=== PATIENT | male | born 1975 | race Caucasian/White ===

== ENCOUNTER 2024-04-02 12:25 | Emergency (ER) | payer OTHER, SELFPAY ==
[2024-04-02] VITALS (10 sets, daily range): BP systolic 181–210; BP diastolic 93–121; PULSE 71–100; RESP 18; TEMP 36.4–37; O2SAT 98–100; BMI 23.9
--- NOTE | ~2024-04-02 | XR_ITS ---
EXAMINATION: XR CHEST CLINICAL INFORMATION: Chest pain COMPARISON: None available. TECHNIQUE: 2 views of the chest were obtained. FINDINGS: No significant abnormality is noted involving the heart, lungs, mediastinum, bony thorax or soft tissues. XR/XR chest 2V IMPRESSION: Unremarkable examination. Electronically signed by: Shiva Alvarado MD 04/02/2024 10:35 PM EDT
--- NOTE | 2024-04-02 12:42 | ECG_ITS ---
Test Reason : CHEST PAIN Blood Pressure : / mmHG Vent. Rate : 089 BPM Atrial Rate : 089 BPM P-R Int : 120 ms QRS Dur : 104 ms QT Int : 358 ms P-R-T Axes : 052 049 039 degrees QTc Int : 435 ms Normal sinus rhythm Moderate voltage criteria for LVH, may be normal variant ( Sokolow-Ball , [place] product ) Borderline ECG No previous ECGs available Referred By: Generic ED Physician Electronically Signed By:DON JANE
--- NOTE | 2024-04-02 12:44 | ED_ITS ---
HPI - Chest Pain General Chief Complaint: Chest Pain Stated Complaint: hypertension issue Time Seen by Provider: 04/02/24 20:15 Source: patient Limitations: no limitations History of Present Illness ED Provider: Paty Marks PA-C HPI narrative: 48-year-old male with a history of anxiety, hypertension with nonadherence with his medications for years, white coat syndrome, presents with chest pain. Patient states he is traveling through the area, he [place] [address] when he felt ?a twinge in his chest. His symptoms were brief. He began to panic, he pulled off to the side of the road, he called a friend to bring him to the emergency department. Denies shortness of breath, diaphoresis, visual changes, headache, dizziness, nausea, vomiting. Patient states he has been off meds for quite some time, he used to take amlodipine 5 mg and HCTZ 25 mg. Patient does have a primary care provider he can follow up with. Related Data Previous Rx's ?Medication ?Instructions ?Recorded amlodipine 10 mg tablet 10 mg PO DAILY #30 tabs 04/02/24 hydrochlorothiazide 25 mg tablet 25 mg PO DAILY #30 tabs 04/02/24 hydroxyzine HCl 50 mg tablet 50 mg PO QID PRN anxiety #20 tabs 04/02/24 Allergies Allergy/AdvReac Type Severity Reaction Status Date / Time No Known Allergies Allergy Verified 04/02/24 12:36 Review of Systems 2 Review of Systems: Yes all other systems are reviewed and are negative Constitutional: Constitutional: Denies fever(s) and Denies headache(s) Eyes: Eyes: Denies change in vision ENT: Denies headache(s) Cardiovascular: Cardiovascular: Reports chest pain, Denies radiating jaw, neck or arm pain and Denies dyspnea Respiratory: Respiratory: Denies dyspnea Gastrointestinal: Gastrointestinal: Denies vomiting Neurologic: Denies headache(s) [facility] Past Medical History Attestation statement: The following information was validated with the patient. Social History Social History Advance Directives: No Advance Directives Information Provided: No Do you have a plan to hurt others: No Plan Physical Exam 2 Vital Signs: Vital Signs: Last Vital Signs Temp 97.8 F 04/02/24 21:48 Pulse 75 04/02/24 22:00 Resp 18 04/02/24 22:00 BP 181/99 H 04/02/24 22:04 Pulse Ox 98 04/02/24 21:49 O2 Del Method Room Air 04/02/24 21:49 BMI result Body Mass Index 23.9 Const: Other: Alert, well in appearance Orientation/consciousness: patient oriented x3 Resp: Effort & Inspection: normal respiratory effort Cardio: Other: Normal peripheral perfusion Skin: Other: Warm dry no rash Neuro: General: patient oriented x3, gait normal, no focal motor deficits and CN's II-XI intact bilaterally Psych: Other: Cooperative, anxious Course Course Course Narrative: This is an RME performed by Mary Fonseca, TRAINING PROGRAM DEVELOPER: Additional HPI, ROS, PE not included below will be deferred to primary provider. Patient is a 48-year-old male who presents emergency department for evaluation of left anterior chest pain, hypertension. Has not been taking antihypertensive medications. Plan: Well-appearing, nontoxic, notably hypertensive to 209/121 Medications Administered Discontinued Medications Generic Name Dose Route Start Last Admin Trade Name Freq PRN Reason Stop Dose Admin Amlodipine Besylate 5 mg 04/02/24 20:55 04/02/24 21:08 Amlodipine Besylate 5 Mg Tablet PO 04/02/24 20:56 5 mg ONCE ONE Administration Protocol Amlodipine Besylate 5 mg 04/02/24 21:48 04/02/24 22:04 Amlodipine Besylate 5 Mg Tablet PO 04/02/24 21:49 5 mg ONCE ONE Administration Protocol Hydrochlorothiazide 25 mg 04/02/24 20:55 04/02/24 21:07 Hydrochlorothiazide 25 Mg Tablet PO 04/02/24 20:56 25 mg ONCE ONE Administration Protocol Hydroxyzine HCl 50 mg 04/02/24 20:55 04/02/24 21:08 Hydroxyzine Hcl 50 Mg Tablet PO 04/02/24 20:56 50 mg ONCE ONE Administration Medical Decision Making Medical Decision Making [facility] Narrative: 48-year-old male with a history of anxiety, hypertension with nonadherence with his medications for years, white coat syndrome, presents with chest pain. Patient states he is traveling through the area, he was driving on when he felt ?a twinge in his chest. His symptoms were brief. He began to panic, he pulled off to the side of the road, he called a friend to bring him to the emergency department. Denies shortness of breath, diaphoresis, visual changes, headache, dizziness, nausea, vomiting. Patient states he has been off meds for quite some time, he used to take amlodipine 5 mg and HCTZ 25 mg. Patient does have a primary care provider he can follow up with. Problem: Poorly managed hypertension History: Per patient I have considered the following differential diagnoses: ACS, hypertensive urgency, hypertensive emergency, anxiety, panic attack Plan: The patient is indeed hypertensive, he has been off his medications, this is expected. His assessment began out in triage, screening labs including a cardiac enzyme and EKG were obtained. We will obtain a delta troponin, and a chest x-ray. I am giving the patient has prescribed medications. I am also giving him a dose of hydroxyzine. I discussed with him the need to initiate therapy, he agrees. He has been told in the past that he would benefit from counseling. This is not hypertensive emergency, he is not altered, he has no evidence of end-organ damage. Hard to say whether this is hypertensive urgency, he has no blood pressure, that has not been managed, he also has white coat syndrome and anxiety which exacerbate his current elevated pressures. To note, they are responding to medication. I have independently reviewed the following tests: Labs: No leukocytosis, not anemic, no electrolyte abnormality, creatinine .79, troponin x2 negative Chest x-ray: No enlarged cardiac silhouette, no pleural effusion, no pulmonary Edema, no pneumonia EKG: Normal sinus rhythm, rate, 89 , no ischemic changes no ectopy, moderate voltage criteria for LVH Lab Data 04/02/24 12:53 04/02/24 12:53 Labs: Lab Results 04/02/24 04/02/24 Range/Units 12:53 20:58 WBC 6.2 (4.8-10.8) X10*3/uL RBC 5.62 (4.60-5.80) X10*6/uL Hgb 17.3 (14.0-18.0) g/dl Hct 48.3 (42.0-52.0) % MCV 85.9 (80.0-98.0) fL MCH 30.8 (27.0-33.0) pg MCHC 35.8 (31.0-36.0) g/dl RDW 11.9 (11.0-16.0) % Plt Count 199 (160-400) X10*3/uL MPV 9.9 (9.4-12.4) fL Immature Gran % (Auto) 0.6 H (0.0-0.4) % Neut % (Auto) 63.1 (45-73) % Lymph % (Auto) 23.0 (20-40) % [place] % (Auto) 10.3 (2-11) % Eos % (Auto) 1.4 (0-4) % Baso % (Auto) 1.6 (0-2) % Lymph # (Auto) 1.4 (1.2-4.9) X10*3/uL [place] # (Auto) 0.6 (0.1-1.2) X10*3/uL Eos # (Auto) 0.1 (0.0-0.4) X10*3/uL Baso # (Auto) 0.1 (0.0-0.2) X10*3/uL Abs Immat Gran (auto) 0.04 H (0.00-0.03) X10*3/uL Absolute Neuts (auto) 3.9 (2.0-8.3) x10*3/uL Absolute Nucleated RBC 0.000 (0.0-0.012) X10*3/uL Nucleated RBC % (auto) 0.0 (0.0-0.2) /100WBC Smear Tech's Comments VERIFIED Sodium 139 (135-145) mmol/L Potassium 4.4 (3.3-5.1) mmol/L Chloride 106 (96-108) mmol/L Carbon Dioxide 23 (22-29) mmol/L Anion Gap 14 (12-20) BUN 12 (9-16) mg/dL Creatinine 0.79 (0.5-1.4) mg/dL Estim Creat Clear Calc 97.8 Estimated GFR > 60 Random Glucose 104 (60-115) mg/dL Calcium 9.3 (8.4-10.2) mg/dL Magnesium 2.2 (1.6-2.6) mg/dL Total Bilirubin 0.6 (0.0-1.0) mg/dL AST 36 (5-37) U/L ALT 43 H (0-40) U/L Alkaline Phosphatase 51 (39-117) U/L Troponin I High Sens < 2.7 < 2.7 (<3.5-35.0) ng/L Total Protein 7.2 (6.5-8.0) g/dL Albumin 4.4 (3.5-5.0) g/dL Discharge Plan Discharge Clinical Impression: Hypertension, Anxiety Patient Disposition: Home, Self-Care Instructions: Heart Healthy Diet (ED), How to Take a Blood Pressure (ED), Chronic Hypertension (ED), Panic Disorder (ED), Anxiety (ED) Additional Instructions: All of your labs including 2 cardiac enzymes were normal. There were no concerning changes on her EKG in your chest x-ray was clear. I am providing you with a month's worth of your prescribed blood pressure medications, take them as directed. I am also sending you with a prescription for hydroxyzine, this is a medication that we use for anxiety. You could definitely benefit from therapy/counseling, to begin managing your anxiety. I do feel your anxiety is contributory to your blood pressure as well. Call your primary care provider for an appointment. Prescriptions: New hydroxyzine HCl 50 mg tablet 50 mg PO QID PRN (Reason: anxiety) Qty: 20 0RF amlodipine 10 mg tablet 10 mg PO DAILY Qty: 30 0RF hydrochlorothiazide 25 mg tablet 25 mg PO DAILY Qty: 30 0RF Print Language: [place]
[2024-04-02 13:02] LABS: Basophils Absolute Auto 0.1 X10*3/uL (0.0-0.2); Basophils Percent Auto 1.6 % (0-2); Eosinophils Absolute Auto 0.1 X10*3/uL (0.0-0.4); Eosinophils Percent Auto 1.4 % (0-4); Hematocrit 48.3 % (42.0-52.0); Hemoglobin 17.3 g/dl (14.0-18.0); Imm Gran Abs Auto 0.04 X10*3/uL (0.00-0.03); Imm Gran Pct Auto 0.6 % (0.0-0.4); Lymphocytes Absolute Auto 1.4 X10*3/uL (1.2-4.9); MANUAL DIFF FLAG SCAN; Mean Corpuscular HGB Conc 35.8 g/dl (31.0-36.0); Mean Corpuscular Hemoglobin 30.8 pg (27.0-33.0); Mean Corpuscular Volume 85.9 fL (80.0-98.0); Mean Platelet Volume 9.9 fL (9.4-12.4); Monocytes Absolute Auto 0.6 X10*3/uL (0.1-1.2); Monocytes Percent Auto 10.3 % (2-11); Neutrophils Absolute Auto 3.9 x10*3/uL (2.0-8.3); Neutrophils Percent Auto 63.1 % (45-73); PLT CLUMP 1; Red Blood Count 5.62 X10*6/uL (4.60-5.80); Red Cell Distribution Width 11.9 % (11.0-16.0); SCAN SMEAR FLAG 1; White Blood Count 6.2 X10*3/uL (4.8-10.8)
[2024-04-02 13:11] LABS: Alanine Aminotransferase 43 U/L (0-40); Albumin Level 4.4 g/dL (3.5-5.0); Alkaline Phosphatase 51 U/L (39-117); Anion Gap 14 (12-20); Aspartate Amino Transferase 36 U/L (5-37); Bilirubin Total 0.6 mg/dL (0.0-1.0); Blood Urea Nitrogen 12 mg/dL (9-16); Calcium 9.3 mg/dL (8.4-10.2); Carbon Dioxide 23 mmol/L (22-29); Chloride 106 mmol/L (96-108); Creatinine Clr Calc Pharmacy 97.8; Estimated Glomerular Filt Rate > 60; Glucose Random 104 mg/dL (60-115); Magnesium 2.2 mg/dL (1.6-2.6); Potassium 4.4 mmol/L (3.3-5.1); Sodium 139 mmol/L (135-145); Total Protein 7.2 g/dL (6.5-8.0)
[2024-04-02 13:19] LABS: Troponin-I High Sensitivity < 2.7 ng/L (<3.5-35.0)
[2024-04-02 13:22] LABS: Platelet Count 199 X10*3/uL (160-400); SLIDE REVIEW VERIFIED
--- NOTE | 2024-04-02 20:01 | MHC.EDTECH ---
Patient brought from the waiting room,vitals taken,BP is elevated 186/98,RN Blanca made aware.
--- NOTE | 2024-04-02 20:58 | MHC.EDTECH ---
Repeat Trop drawn and sent to lab.
[2024-04-02] MEDS: hydroCHLOROthiazide 25 MG TABLET PO (21:07)
[2024-04-02] MEDS: hydrOXYzine HCL 50 MG TABLET PO (21:08)
[2024-04-02] MEDS: amLODIPine Besylate 5 MG TABLET PO ×2 (21:08→22:04)
[2024-04-02 21:40] LABS: Troponin-I High Sensitivity < 2.7 ng/L (<3.5-35.0)
--- NOTE | 2024-04-02 21:50 | MHC.EDTECH ---
Rounds and vitals completed,BP is elevated 210/106 LT, 201/102 RT, steel unloader and MD Padilla made aware,patient is resting comfortably in no distress at this time
== END 2024-04-02 23:33 | disposition home or self-care (01) ==
PROVIDERS: Physician Assistant Medical; Emergency Provider Emergency Medicine
DX: R07.89 Other chest pain (principal); I10 Essential (primary) hypertension; H35.029 Exudative retinopathy, unspecified eye; F41.1 Generalized anxiety disorder; F43.0 Acute stress reaction; Z79.899 Other long term (current) drug therapy
CPT/HCPCS: 36415; 71046; 80053; 83735; 84484; 85025; 93005; 99284; 99285